=== PATIENT | male | born 2000 | race African-American/Black ===

== ENCOUNTER 2023-07-13 11:57 | Emergency (ER) | payer OTHER ==
[~2023-07-13] VITALS: Ht 172.7 cm; Wt 68.0 kg
[2023-07-13 12:05] VITALS: O2SAT 100
[2023-07-13] MEDS ORDERED: HYDROCODONE/ACETAMINOPHEN 5/325MG TABLET PO ONE (12:30)
[2023-07-13] MEDS ORDERED: BACITRACIN ZINC OINT UDPKT TOP ONE (12:30)
[2023-07-13] MEDS ORDERED: LIDOCAINE HCL/EPINEPHRINE 1%-EPI 1:100,000 20 ML VIAL INFIL ONE (12:30)
[2023-07-13] MEDS ORDERED: TETANUS, DIPHTHERIA, PERTUSSIS VAC/PF 0.5ML (>10YR OLD) IM ONE (12:30)
[2023-07-13] MEDS ORDERED: LIDOCAINE HCL 2%/EPINEPHRINE/PF 10 ML VIAL INFIL ONE (13:00)
[2023-07-13] MEDS ORDERED: LIDOCAINE 1%/EPI 1:200,000 10 ML VIAL IJ NR (13:00)
[2023-07-13] MEDS: LIDOCAINE 2%/EPINEPHRINE 1:200,000 20 ML VIAL INJ NR ×2 (13:08→14:59)
[2023-07-13] MEDS ORDERED: HYDR-4001 MT (14:19)
[2023-07-13 15:19] VITALS: BP 122/67; PULSE 72; RESP 18; TEMP 98.5
== END 2023-07-13 14:35 | disposition home or self-care (01) ==
LOC: ER 11:57
DX: S61.512A Laceration without foreign body of left wrist, initial encounter (principal); W25.XXXA Contact with sharp glass, initial encounter; Y93.89 Activity, other specified; Y92.89 Other specified places as the place of occurrence of the external cause; Y99.8 Other external cause status
CPT/HCPCS: 99283; 73110; 90715; 12004; 90471; J3490 ×2

== ENCOUNTER 2023-07-15 09:38 | Emergency (ER) | payer OTHER ==
[~2023-07-15] VITALS: Ht 177.8 cm; Wt 67.0 kg
[~2023-07-15 09:38] MED LIST: HYDR-4001 MT
[2023-07-15 10:07] VITALS: BP 136/76; PULSE 66; RESP 16; TEMP 97.9; O2SAT 99
== END 2023-07-15 10:34 | disposition home or self-care (01) ==
LOC: ER 09:38
DX: S61.512D Laceration without foreign body of left wrist, subsequent encounter (principal); J45.909 Unspecified asthma, uncomplicated; Z48.00 Encounter for change or removal of nonsurgical wound dressing; X58.XXXD Exposure to other specified factors, subsequent encounter
CPT/HCPCS: 99281

== ENCOUNTER 2023-07-20 13:18 | Emergency (ER) | payer OTHER ==
[~2023-07-20] VITALS: Ht 172.7 cm; Wt 65.0 kg
[2023-07-20 13:21] VITALS: BP 164/99; PULSE 91; RESP 16; TEMP 98; O2SAT 99
== END 2023-07-20 15:06 | disposition home or self-care (01) ==
LOC: ER 13:18
DX: S61.511D Laceration without foreign body of right wrist, subsequent encounter (principal); J45.909 Unspecified asthma, uncomplicated; Z48.00 Encounter for change or removal of nonsurgical wound dressing; X58.XXXD Exposure to other specified factors, subsequent encounter
CPT/HCPCS: 99281

== ENCOUNTER 2023-08-03 11:58 | Emergency (ER) | payer OTHER ==
[~2023-08-03] VITALS: Ht 177.8 cm; Wt 64.0 kg
[2023-08-03 12:21] VITALS: BP 139/90; PULSE 83; RESP 16; TEMP 98.6; O2SAT 100
== END 2023-08-03 15:26 | disposition home or self-care (01) ==
LOC: ER 11:58
DX: S61.412D Laceration without foreign body of left hand, subsequent encounter (principal); J45.909 Unspecified asthma, uncomplicated; Z48.02 Encounter for removal of sutures; X58.XXXD Exposure to other specified factors, subsequent encounter
CPT/HCPCS: 99281